=== PATIENT | male | born 1990 | race Hispanic/Latino ===

== ENCOUNTER 2021-07-05 14:56 | Emergency (ER) | payer SELFPAY ==
[2021-07-05] MEDS ORDERED: ceFAZolin 2 GM/Dextrose 50 ML IVPB ONE (15:35)
[2021-07-05] MEDS ORDERED: Ketorolac Tromethamine 30 MG/ML VIAL ONE (15:35)
[2021-07-05] MEDS ORDERED: Boostrix 0.5 ML (Tdap) VIAL ONE (15:35)
[2021-07-05 17:00] LABS: SARS-CoV-2 NAA Rapid Test Not Detected (NotDetected)
== END 2021-07-05 17:41 | disposition short-term general hospital (02) ==
LOC: CSHERS 14:56
DX: T23.202A Burn of second degree of left hand, unspecified site, initial encounter (principal); L03.114 Cellulitis of left upper limb; T31.0 Burns involving less than 10% of body surface; Z23 Encounter for immunization; Z20.822 Contact with and (suspected) exposure to COVID-19; X08.8XXA Exposure to other specified smoke, fire and flames, initial encounter
CPT/HCPCS: 16020; 90471; 90715; 96374; 96375; J0690; J1885; U0002